=== PATIENT | male | born 1960 | race Hispanic/Latino ===

== ENCOUNTER 2020-07-16 04:41 | Observation (INO) | payer SELFPAY ==
[2020-07-16] MEDS ORDERED: ASPIRIN 325 MG TAB PO ONE (05:50)
[2020-07-16 06:23] LABS: Basophils % (Auto) 0.5 % (0.0-1.8); Eosinophils # (Auto) 0.1 K/mm3 (0.0-0.4); Eosinophils % (Auto) 1.7 % (0.0-4.3); Hematocrit 39.5 % (35.5-45.6); Hemoglobin 13.7 gm/dl (11.8-15.2); Lymphocytes # (Auto) 1.3 K/mm3 (1.2-5.4); Lymphocytes % (Auto) 20.6 % (13.4-35.0); Mean Corpuscular HGB Conc 35 % (32-34); Mean Corpuscular Volume 94 fl (84-94); Monocytes # (Auto) 0.6 K/mm3 (0.0-0.8); Platelet Count 115 K/mm3 (140-440); Red Cell Distribution Width 13.7 % (13.2-15.2)
--- NOTE | 2020-07-16 06:35 | Emergency Department Report ---
ED Chest Pain HPI - General Chief Complaint: Chest Pain Stated Complaint: CHEST PAIN Time Seen by Provider: 07/16/20 06:24 Source: patient Mode of arrival: Stretcher Limitations: No Limitations - History of Present Illness Initial Comments: This is a 60-year-old male who states that since 2:00 he has had episodes of "momentary" sharp chest pain in the subxiphoid area which was nonpleuritic and nonradiating. He admits that he was seen for similar pain about a year ago at another emergency department and released. He denies any other associated sympt oms with the chest discomfort. He is not complaining of discomfort at the time of my initial encounter in his chest. He states that he has "rheumatoid arthritis" and multiple painful joints. He requests Tylenol. He states he also takes Naprosyn for this. Patient denies any recent fever chills cough or diarrhea. He states that he was recently incarcerated. After release he drank excessive beer. This caused nausea and vomiting led to an emergency department visit at another emergency department about 3 days ago. He states he was given saline and released. He does not complain of abdominal pain today. He is not referring any signs of GI bleeding. Patient states that his father had a massive heart attack which he survived in his early 50s. Patient himself stopped smoking in the 70s. He has no known history of cardiac disease but has not had any recent work-up. He states he had a stress test a long time ago and was not told it was abnormal. However, he did state that he was essentially "out of shape" at the time. I suspect he did not reach his target heart rate. MD Complaint: chest pain -: Gradual Onset: during rest Pain Location: substernal Pain Radiation: none Severity: mild, moderate Quality: sharp Consistency: intermittent, now resolved Improves With: nothing Worsens With: nothing re: denies: nausea, vomting, diaphoresis Other Symptoms: denies: cough, fever, syncope Treatments Prior to Arrival: none Aspirin use within the Past 7 Days: (0) No - Related Data Allergies Allergy/AdvReac Type Severity Reaction Status Date / Time No Known Allergies Allergy Verified 07/16/20 05:50 Heart Score - HEART Score History: Slightly suspicious EKG: Non-specific Age: 45-65 Risk factors: 1-2 risk factors Troponin: < normal limit HEART Score: 3 - EKG Read Time Time EKG Completed: 05:13 EKG Read Time: 05:18 - Critical Actions Critical Actions: 0-3 pts:0.9-1.7%risk of adverse cardiac event.Candidate for discharge ED Review of Systems ROS: Stated complaint: CHEST PAIN Other details as noted in HPI Constitutional: denies: chills, fever Eyes: denies: eye pain, eye discharge, vision change ENT: denies: ear pain, throat pain Respiratory: denies: cough, shortness of breath, wheezing Cardiovascular: chest pain. denies: palpitations Endocrine: no symptoms reported Gastrointestinal: as per HPI, nausea, vomiting. denies: abdominal pain, diarrhea Genitourinary: denies: urgency, dysuria Musculoskeletal: arthralgia. denies: back pain Skin: denies: rash, lesions Neurological: denies: headache, weakness, paresthesias Psychiatric: denies: anxiety, depression Hematological/Lymphatic: denies: easy bleeding, easy bruising ED Past Medical Hx - Past Medical History Previous Medical History?: Yes Additional medical history: Rheumatoid arthritis - Surgical History Past Surgical History?: Yes Additional Surgical History: Left Leg Surgery, Ear surgery - Social History Smoking Status: Never Smoker Substance Use Type: Alcohol ED Physical Exam - General Limitations: No Limitations General appearance: alert, in no apparent distress, other (Poor hygiene, looks a little sweaty) - Head Head exam: Present: atraumatic, normocephalic - Eye Eye exam: Present: normal appearance. Absent: scleral icterus - ENT ENT exam: Present: mucous membranes moist - Neck Neck exam: Present: normal inspection - Respiratory Respiratory exam: Present: normal lung sounds bilaterally. Absent: respiratory distress - Cardiovascular Cardiovascular Exam: Present: regular rate, normal rhythm. Absent: systolic murmur, diastolic murmur, rubs, gallop - GI/Abdominal GI/Abdominal exam: Present: soft, normal bowel sounds. Absent: distended, tenderness, guarding, rebound - Rectal Rectal exam: Present: deferred - Extremities Exam Extremities exam: Present: normal inspection, normal capillary refill. Absent: calf tenderness - Back Exam Back exam: Present: normal inspection - Neurological Exam Neurological exam: Present: alert, oriented X3, CN II-XII intact. Absent: motor sensory deficit - Psychiatric Psychiatric exam: Present: normal affect, normal mood - Skin Skin exam: Present: warm, dry, intact, normal color. Absent: rash ED Course Vital Signs 07/16/20 07/16/20 07/16/20 05:45 06:36 06:46 Temperature 98.1 F Pulse Rate 103 H 90 89 Respiratory 18 18 15 Rate Blood Pressure 116/83 Blood Pressure 112/79 [Left] O2 Sat by Pulse 98 97 97 Oximetry 07/16/20 07/16/20 07/16/20 07:00 07:30 08:00 Temperature Pulse Rate 87 90 90 Respiratory 18 13 13 Rate Blood Pressure 116/83 120/68 116/73 Blood Pressure [Left] O2 Sat by Pulse 98 94 97 Oximetry - Reevaluation(s) Reevaluation #1: Patient appeared stable in the emergency department had no significant recurrent chest pain. However with his strong family history of "massive PA" and substantial risk factors without recent work-up he was admitted to the hospital service for further care and evaluation. Discussed with Dr. Recio. 07/16/20 12:06 TIFFANY score - Tiffany Score Age > 65: (0) No Aspirin use within the Past 7 Days: (0) No 3 or more CAD Risk Factors: (0) No 2 or more Angina events in past 24 hrs: (0) No Known CAD with more than 50% Stenosis: (0) No Elevated Cardiac Markers: (0) No ST Deviation Greater than 0.5mm: (1) Yes TIFFANY Score: 1 ED Medical Decision Making - Lab Data Result diagrams: 07/16/20 05:56 07/16/20 05:56 Laboratory Results - last 24 hr 07/16/20 07/16/20 07/16/20 05:56 05:56 08:41 WBC 6.1 RBC 4.20 Hgb 13.7 Hct 39.5 MCV 94 MCH 33 H MCHC 35 H RDW 13.7 Plt Count 115 L Lymph % (Auto) 20.6 [place] % (Auto) 10.0 H Eos % (Auto) 1.7 Baso % (Auto) 0.5 Lymph # (Auto) 1.3 [place] # (Auto) 0.6 Eos # (Auto) 0.1 Baso # (Auto) 0.0 Seg Neutrophils % 67.2 Seg Neutrophils # 4.1 Sodium 141 Potassium 4.5 Chloride 100.0 Carbon Dioxide 31 H Anion Gap 15 BUN 7 L Creatinine 0.7 L Estimated GFR > 60 BUN/Creatinine Ratio 10 Glucose 87 Calcium 8.9 Total Bilirubin 0.40 AST 37 ALT 25 Alkaline Phosphatase 109 Troponin T < 0.010 Total Protein 6.8 Albumin 4.0 Albumin/Globulin Ratio 1.4 - EKG Data -: EKG Interpreted by Me EKG shows normal: sinus rhythm, axis, intervals Rate: normal - EKG Data Interpretation: nonspecific ST-T wave steve, LVH (Consider) Repeat EKG showed no interval change 07/16/20 12:05 - Radiology Data IMPRESSION: Chest x-ray 1. No acute findings. Critical care attestation.: If time is entered above; I have spent that time in minutes in the direct care of this critically ill patient, excluding procedure time. ED Disposition Clinical Impression: Thrombocytopenia Chest pain Qualifiers: Chest pain type: unspecified Qualified Code(s): R07.9 - Chest pain, unspecified Disposition: OP ADMIT IP TO THIS HOSP Is pt being admited?: Yes Does the pt Need Aspirin: Yes Condition: Stable Time of Disposition: 12:06
[2020-07-16 06:37] LABS: Alanine Aminotransferase 25 units/L (7-56); Blood Urea Nitrogen 7 mg/dL (9-20); Calcium 8.9 mg/dL (8.4-10.2); Hemolysis Index 17
[2020-07-16 06:38] LABS: BUN/Creatinine Ratio 10
--- NOTE | 2020-07-16 06:41 | XRay Report ---
CHEST PA AND LATERAL VIEWS INDICATION: chest pain. COMPARISON: None. FINDINGS: Support devices: None. Heart: Within normal limits. Lungs/Pleura: Lungs are hyperexpanded but clear. No pleural abnormality. There is mild chronic compression deformity at L1. There is also mild compression deformity at T6 whi ch appears chronic. IMPRESSION: 1. No acute findings. Signer Name: Fili Graves MD Signed: 07/16/2020 6:36 AM Workstation Name: [id number]
[2020-07-16] MEDS ORDERED: ACETAMINOPHEN 325 MG TAB PO ONE (07:05)
[2020-07-16] MEDS ORDERED: ONDANSETRON 4 MG/2 ML INJ IV PRN (22:27)
[2020-07-16] MEDS ORDERED: oxyCODONE /ACETAMINOPHEN 5-325MG TAB PO PRN (22:27)
[2020-07-16] MEDS ORDERED: HYDROmorphone 1 MG/1 ML INJ IV PRN (22:27)
[2020-07-16] MEDS ORDERED: ACETAMINOPHEN 325 MG TAB PO PRN (22:27)
--- NOTE | 2020-07-16 22:27 | History and Physical Report ---
History of Present Illness Date of examination: 07/16/20 Date of admission: 07/16/20 12:07 Chief complaint: Chest pain since last night History of present illness: 60-year-old male coes in for chest pain since last night .Apparently he walked long distance yesterday and developed chest pain after that.Chest pain is retrosternal and non radiating.No diaphoresis.No radiation.No Sob . Walking is a precipitating factor. Has hx of Arthritis. Heart Score - HEART Score History: Slightly suspicious EKG: Non-specific Age: 45-65 Risk factors: 1-2 risk factors Troponin: < normal limit HEART Score: 3 - EKG Read Time Time EKG Completed: 05:13 EKG Read Time: 05:18 - Critical Actions Critical Actions: 0-3 pts:0.9-1.7%risk of adverse cardiac event.Candidate for discharge - Past Medical History Previous Medical History?: Yes Additional medical history: Rheumatoid arthritis - Surgical History Past Surgical History?: Yes Additional Surgical History: Left Leg Surgery, Ear surgery - Social History Smoking Status: Never Smoker Substance Use Type: Alcohol Family Hx OA Review of Systems ROS: Stated complaint: CHEST PAIN Other details as noted in HPI Constitutional: denies: chills, fever Eyes: denies: eye pain, eye discharge, vision change ENT: denies: ear pain, throat pain Respiratory: denies: cough, shortness of breath, wheezing Cardiovascular: chest pain. denies: palpitations Endocrine: no symptoms reported Gastrointestinal: as per HPI, nausea, vomiting. denies: abdominal pain, diarrhea Genitourinary: denies: urgency, dysuria Musculoskeletal: arthralgia. denies: back pain Skin: denies: rash, lesions Neurological: denies: headache, weakness, paresthesias Psychiatric: denies: anxiety, depression Hematological/Lymphatic: denies: easy bleeding, easy bruising Medications and Allergies Allergies Allergy/AdvReac Type Severity Reaction Status Date / Time No Known Allergies Allergy Verified 07/16/20 05:50 Home Medications Medication Instructions Recorded Confirmed Last Taken Type EC-Naproxen 500 mg PO BID 07/16/20 07/16/20 07/15/20 History Meloxicam 15 mg PO BID 07/16/20 07/16/20 07/15/20 History Exam - Constitutional Vitals: Temp Pulse Resp BP Pulse Ox 98.2 F 93 H 20 119/95 93 07/16/20 19:49 07/16/20 19:49 07/16/20 19:49 07/16/20 19:49 07/16/20 19:49 General appearance: Present: no acute distress, well-nourished - EENT Eyes: Present: PERRL ENT: hearing intact, clear oral mucosa - Neck Neck: Present: supple, normal ROM - Respiratory Respiratory effort: normal Respiratory: bilateral: CTA - Cardiovascular Heart rate: 78 Rhythm: regular Heart Sounds: Present: S1 & S2. Absent: rub, click - Extremities Extremities: no ischemia, pulses intact, pulses symmetrical, No edema Peripheral Pulses: within normal limits - Abdominal General gastrointestinal: Present: soft, non-tender, non-distended, normal bowel sounds Male genitourinary: Present: normal - Rectal Rectal Exam: deferred - Integumentary Integumentary: Present: clear, warm, dry - Musculoskeletal Musculoskeletal: gait normal, strength equal bilaterally - Psychiatric Psychiatric: appropriate mood/affect, intact judgment & insight - Neurologic Neurologic: CNII-XII intact, moves all extremities - Allied Health Allied health notes reviewed: nursing, case management HEART Score - HEART Score EKG: Non-specific Age: 45-65 Risk factors: 1-2 risk factors Troponin: Troponin T < 0.010 ng/mL (0.00-0.029) 07/16/20 11:41 Troponin: < normal limit - Critical Actions Critical Actions: 0-3 pts:0.9-1.7%risk of adverse cardiac event.Candidate for discharge Results - Labs CBC & Chem 7: 07/17/20 05:47 07/16/20 05:56 Labs: Laboratory Last Values WBC 6.1 K/mm3 (4.5-11.0) 07/16/20 05:56 RBC 4.20 M/mm3 (3.65-5.03) 07/16/20 05:56 Hgb 13.7 gm/dl (11.8-15.2) 07/16/20 05:56 Hct 39.5 % (35.5-45.6) 07/16/20 05:56 MCV 94 fl (84-94) 07/16/20 05:56 MCH 33 pg (28-32) H 07/16/20 05:56 MCHC 35 % (32-34) H 07/16/20 05:56 RDW 13.7 % (13.2-15.2) 07/16/20 05:56 Plt Count 115 K/mm3 (140-440) L 07/16/20 05:56 Lymph % (Auto) 20.6 % (13.4-35.0) 07/16/20 05:56 [place] % (Auto) 10.0 % (0.0-7.3) H 07/16/20 05:56 Eos % (Auto) 1.7 % (0.0-4.3) 07/16/20 05:56 Baso % (Auto) 0.5 % (0.0-1.8) 07/16/20 05:56 Lymph # (Auto) 1.3 K/mm3 (1.2-5.4) 07/16/20 05:56 [place] # (Auto) 0.6 K/mm3 (0.0-0.8) 07/16/20 05:56 Eos # (Auto) 0.1 K/mm3 (0.0-0.4) 07/16/20 05:56 Baso # (Auto) 0.0 K/mm3 (0.0-0.1) 07/16/20 05:56 Seg Neutrophils % 67.2 % (40.0-70.0) 07/16/20 05:56 Seg Neutrophils # 4.1 K/mm3 (1.8-7.7) 07/16/20 05:56 Sodium 141 mmol/L (137-145) 07/16/20 05:56 Potassium 4.5 mmol/L (3.6-5.0) 07/16/20 05:56 Chloride 100.0 mmol/L (98-107) 07/16/20 05:56 Carbon Dioxide 31 mmol/L (22-30) H 07/16/20 05:56 Anion Gap 15 mmol/L 07/16/20 05:56 BUN 7 mg/dL (9-20) L 07/16/20 05:56 Creatinine 0.7 mg/dL (0.8-1.3) L 07/16/20 05:56 Estimated GFR > 60 ml/min 07/16/20 05:56 BUN/Creatinine Ratio 10 % 07/16/20 05:56 Glucose 87 mg/dL (75-100) 07/16/20 05:56 Calcium 8.9 mg/dL (8.4-10.2) 07/16/20 05:56 Total Bilirubin 0.40 mg/dL (0.1-1.2) 07/16/20 05:56 AST 37 units/L (5-40) 07/16/20 05:56 ALT 25 units/L (7-56) 07/16/20 05:56 Alkaline Phosphatase 109 units/L (35-129) 07/16/20 05:56 Troponin T < 0.010 ng/mL (0.00-0.029) 07/16/20 11:41 Total Protein 6.8 g/dL (6.3-8.2) 07/16/20 05:56 Albumin 4.0 g/dL (3.9-5) 07/16/20 05:56 Albumin/Globulin Ratio 1.4 % 07/16/20 05:56 - Imaging and Cardiology EKG: report reviewed (NSR LVH Hr of 95) Chest x-ray: report reviewed (NAF) Harper/IV: Voiding Method Toilet Assessment and Plan Advance Directives: Yes (Full code) VTE prophylaxis?: Chemical Plan of care discussed with patient/family: Yes - Patient Problems (1) ACS (acute coronary syndrome) Current Visit: Yes Status: Acute Plan to address problem: Serial troponins and Lexiscan in am (2) RA (rheumatoid arthritis) Current Visit: Yes Status: Chronic Qualifiers: Laterality: unspecified laterality Plan to address problem: On Naproxen 500 bid (3) Thrombocytopenia Current Visit: Yes Status: Chronic Plan to address problem: Mild ETOH? Will retake history tomorrow (4) DVT prophylaxis Current Visit: Yes Status: Acute Plan to address problem: On Heparin and GI prophylaxis
[2020-07-16] MEDS ORDERED: NAPROXEN 500 MG PO SCH (22:30)
[2020-07-16] MEDS ORDERED: FAMOTIDINE 20 MG/2 ML INJ IV SCH (23:00)
[2020-07-17] MEDS: NAPROXEN 500 MG TAB PO SCH ×2 (00:38→10:55)
[2020-07-17 01:16] LABS: Creatine Kinase MB 2.5 ng/mL (0.0-4.0)
[2020-07-17 06:47] LABS: Basophils % (Auto) 0.5 % (0.0-1.8); Eosinophils # (Auto) 0.1 K/mm3 (0.0-0.4); Eosinophils % (Auto) 2.9 % (0.0-4.3); Hematocrit 40.4 % (35.5-45.6); Hemoglobin 13.6 gm/dl (11.8-15.2); Lymphocytes # (Auto) 1.4 K/mm3 (1.2-5.4); Lymphocytes % (Auto) 29.3 % (13.4-35.0); Mean Corpuscular HGB Conc 34 % (32-34); Mean Corpuscular Volume 95 fl (84-94); Monocytes # (Auto) 0.5 K/mm3 (0.0-0.8); Monocytes % (Auto) 10.2 % (0.0-7.3); Platelet Count 109 K/mm3 (140-440); Red Blood Count 4.27 M/mm3 (3.65-5.03); Red Cell Distribution Width 13.8 % (13.2-15.2)
[2020-07-17] MEDS ORDERED: REGADENOSON 0.4 MG/5 ML INJ IV ONE (06:48)
[2020-07-17 07:06] LABS: Creatine Kinase MB 2.4 ng/mL (0.0-4.0)
[2020-07-17 07:07] LABS: Alanine Aminotransferase 21 units/L (7-56); Albumin 3.9 g/dL (3.9-5); Blood Urea Nitrogen 10 mg/dL (9-20); Calcium 8.8 mg/dL (8.4-10.2); Hemolysis Index 4
[2020-07-17 09:21] LABS: BUN/Creatinine Ratio 14
[2020-07-17] MEDS ORDERED: FAMOTIDINE 20 MG TAB PO SCH (10:00)
[2020-07-17] MEDS ORDERED: MELOXICAM 15 MG PO SCH (10:00)
--- NOTE | 2020-07-17 12:02 | Nuclear Medicine Report ---
APPROVED REPORT Exam: Nuclear Stress Test Indication: Chest pain BMI: 0 Stress Test Details HR Max Heart Rate (APMHR): 158 bpm Target HR (85% APMHR): 134 bpm BP ECG Clinical Reason for Termination: Completed protocol NM EXAM: Myocardial Perfusion REST/STRESS Imaging Protocol: Rest Tc-99m/Stress Tc-99m 1 day Resting Data Rest SPECT myocardial perfusion imaging was performed in supine position 45 minutes following the intravenous injection of 10 mCi of Tc-99m Myoview. Time of rest injection: 644 Pharmacologic Stress Administration Route: IV The images were gated to evaluate regional wall motion and calculate left ventricular ejection fraction. Exercise Stress At peak stress, the patient was injected intravenously with 28mCi of Tc-99m Myoview. Time of stress injection: 932 Study Quality Study: excellent Lung Uptake: Normal Study Data TID = 1.09. Perfusion The rest and stress images show normal perfusion. Normal perfusion on both the stress and rest images. Wall Motion The rest and stress images show normal left ventricular wall motion. Nuclear Conclusion ECG Findings: negative for ischemia Clinical Findings: negative for ischemia Nuclear Findings: negative for ischemia Exercise Capacity: not assessed Left Ventricular Function: normal Normal study. No scintigraphic evidence for myocardial ischemia or scar. Normal left ventricular size and function with no regional wall motion abnormalities.
[2020-07-17 12:10] VITALS: BP 125/93
--- NOTE | 2020-07-17 15:34 | Discharge Summary ---
Providers - Providers Date of Admission: 07/16/20 12:07 Date of discharge: 07/17/20 Attending physician: MAKENNA SANDERS Primary care physician: SO[employer] TILE [employer]TER Hospitalization Condition: Stable Hospital course: Chest pain since last night History of present illness: 60-year-old male coes in for chest pain since last night .Apparently he walked long distance yesterday and developed chest pain after that.Chest pain is retrosternal and non radiating.No diaphoresis.No radiation.No Sob . Walking is a precipitating factor. Has hx of Arthritis. Lexiscan negative Assessment and Plan Advance Directives: Yes (Full code) VTE prophylaxis?: Chemical Plan of care discussed with patient/family: Yes - Patient Problems (1) ACS (acute coronary syndrome) Current Visit: Yes Status: Acute Plan to address problem: Serial troponins and Lexiscan in am Lexiscan negative (2) RA (rheumatoid arthritis) Current Visit: Yes Status: Chronic Qualifiers: Laterality: unspecified laterality Plan to address problem: On Naproxen 500 bid (3) Thrombocytopenia Current Visit: Yes Status: Chronic Plan to address problem: Mild ETOH? Will retake history tomorrow Disposition: DC-01 TO HOME OR SELFCARE Final Discharge Diagnosis (Prints w/discharge instructions): ACS. Costochondritis. RA Time spent for discharge: 32 minutes - Discharge Diagnoses (1) ACS (acute coronary syndrome) Status: Acute (2) RA (rheumatoid arthritis) Status: Chronic Qualifiers: Laterality: unspecified laterality (3) Thrombocytopenia Status: Chronic (4) DVT prophylaxis Status: Acute Core Measure Documentation - Palliative Care Palliative Care/ Comfort Measures: Not Applicable - Core Measures Any of the following diagnoses?: none Exam - Constitutional Vitals: Temp Pulse Resp BP Pulse Ox 97.6 F 89 16 125/93 98 07/17/20 11:01 07/17/20 11:01 07/17/20 11:01 07/17/20 11:01 07/17/20 11:01 General appearance: Present: no acute distress, well-nourished - EENT Eyes: Present: PERRL ENT: hearing intact, clear oral mucosa - Neck Neck: Present: supple, normal ROM - Respiratory Respiratory effort: normal Respiratory: bilateral: CTA - Cardiovascular Heart rate: 78 Rhythm: regular Heart Sounds: Present: S1 & S2. Absent: rub, click - Extremities Extremities: pulses symmetrical, No edema Peripheral Pulses: within normal limits - Abdominal General gastrointestinal: Present: soft, non-tender, non-distended, normal bowel sounds Male genitourinary: Present: normal - Integumentary Integumentary: Present: clear, warm, dry - Musculoskeletal Musculoskeletal: gait normal, strength equal bilaterally - Psychiatric Psychiatric: appropriate mood/affect, intact judgment & insight - Neurologic Neurologic: CNII-XII intact, moves all extremities - Allied Health Allied health notes reviewed: nursing, case management Plan Diet: regular Follow up with: PRIMARY CARE, [Primary Care Provider] - 7 Days
--- NOTE | 2020-07-20 11:30 | Electrocardiograph Report ---
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
--- NOTE | 2020-07-20 11:31 | Electrocardiograph Report ---
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
== END 2020-07-17 16:24 | disposition home or self-care (01) ==
LOC: ED 04:41 → 4A 12:07
PROVIDERS: ADMIT Internal Medicine; ATTEND Internal Medicine
DX: I24.9 Acute ischemic heart disease, unspecified (principal); M06.9 Rheumatoid arthritis, unspecified; D69.6 Thrombocytopenia, unspecified; Z98.890 Other specified postprocedural states; Z79.899 Other long term (current) drug therapy
CPT/HCPCS: 36415; 71046; 78452; 80053; 82550; 82553; 83036; 84484; 85025; 93005; 93017; 96374; 99285; A9502; G0378; J2785